=== PATIENT | female | born 1975 ===

== ENCOUNTER → 2018-05-28 | Outpatient (REF) | payer OTHER ==
[2018-05-28 13:04] LABS: PLATELET COUNT, AUTOMATED 332 K/uL (150-450)
== END ==
PROVIDERS: ATTEND Nurse Practitioner Family
DX: R07.9 Chest pain, unspecified (principal); R42 Dizziness and giddiness; R55 Syncope and collapse
CPT/HCPCS: 82040; 82247; 82310; 82374; 82435; 82565; 82947; 84075; 84132; 84155; 84295; 84450; 84460; 84484; 84520; 85025; 85379